=== PATIENT | male | born 1970 | race Caucasian/White ===

== ENCOUNTER 2024-02-12 09:41 | Outpatient (CLI) | payer BC | END 2024-02-12 09:42 | disposition home or self-care (01) | LOC: CSHLAB 09:41 | PROVIDERS: ATTEND Otolaryngology Otolaryngic Allergy | DX: Z01.818 Encounter for other preprocedural examination (principal); G47.33 Obstructive sleep apnea (adult) (pediatric); R94.31 Abnormal electrocardiogram [ECG] [EKG] | CPT/HCPCS: 93005; 93010 ==

== ENCOUNTER 2024-02-13 05:41 | Day surgery (SDC) | payer BC ==
[2024-02-12 10:00] VITALS: BMI 35.1
[2024-02-13] MEDS ORDERED: AFRIN NASAL MIST 15 ML BOT ONE (06:44)
[2024-02-13] MEDS ORDERED: Oxymetazoline HCl 0.05% ( 15 ML ) ONE (06:50)
[2024-02-13] MEDS ORDERED: PROPOFOL 60 ML ONE (07:41)
== END 2024-02-13 08:57 | disposition home or self-care (01) ==
LOC: CSHSDC 05:41
PROVIDERS: ATTEND Otolaryngology Otolaryngic Allergy
PROC: 4A1ZXQZ Monitoring of Sleep, External Approach (ICD-10-PCS; principal; 2024-02-13)
DX: G47.33 Obstructive sleep apnea (adult) (pediatric) (principal); I10 Essential (primary) hypertension; E03.9 Hypothyroidism, unspecified; M10.9 Gout, unspecified; F17.220 Nicotine dependence, chewing tobacco, uncomplicated; Z90.49 Acquired absence of other specified parts of digestive tract; Z79.890 Hormone replacement therapy; Z79.899 Other long term (current) drug therapy
CPT/HCPCS: J2704

== ENCOUNTER 2025-04-22 13:55 | Outpatient (CLI) | payer BC | END 2025-04-22 13:56 | disposition home or self-care (01) | LOC: CSHSLEEP 13:55 | PROVIDERS: ATTEND Internal Medicine Critical Care Medicine | DX: G47.33 Obstructive sleep apnea (adult) (pediatric) (principal) | CPT/HCPCS: 95810; 95977 ==